=== PATIENT | female | born 1955 | race American Indian/Alaskan Native ===

== ENCOUNTER 2017-07-09 10:11 | Emergency (ER) | payer BC ==
[2017-07-09 10:20] VITALS: BMI 29.7
--- NOTE | 2017-07-09 10:39 | ED PDOC ---
Arrival/HPI - General Time Seen by Provider: 07/09/17 10:30 Historian: Patient - History of Present Illness Narrative History of Present Illness (Text): 07/09/17 10:41 61 yo female w/PMHx of HTN, CAD s/p PTCA, insomnia come in for evaluation of gradual onset of N/V/D associated with low abdominal pain for past 3 days. Pt reports, (+) intermittent non-bilious, non-bloody vomiting twice daily, few episodes of watery diarrhea yesterday. Pt admits, (+) cold sx for past week associated with productive cough with yellow sputum, former smoker. Pt admits, " was using home remedied for vomiting and stomach pain, worsen since last night ". Otherwise, pt denies high fever, chills, lethargy, headache, dizziness, visual changes, focal deficits, neck pain, CP, SOB, dyspnea, diaphoresis, palpitation, wheezing, hematemesis, melena, hematoschezia, back pain, UTI sx. AT [place] time of evaluation, appears weak, not in resp. distress. Past Medical History - Provider Review Nursing Documentation Reviewed: Yes - Travel History Have you recently traveled outside [place] w/in the past 3 mons?: No - Tetanus Immunization Tetanus Immunization: Unknown Family/Social History - Physician Review Nursing Documentation Reviewed: Yes Family/Social History: No Known Family HX Allergies/Home Meds Allergies/Adverse Reactions: Allergies No Known Allergies Allergy (Verified 07/09/17 10:16) Home Medications: Home Meds Medication Instructions Recorded Confirmed Alprazolam [Xanax] 0.5 mg PO DAILY PRN 07/09/17 07/09/17 buPROPion SR [Wellbutrin SR 150 MG] 150 mg PO DAILY 07/09/17 07/09/17 Review of Systems - Review of Systems Constitutional: Fatigue Eyes: Normal ENT: Normal Respiratory: Cough, Sputum. absent: SOB, Wheezing Cardiovascular: Normal Gastrointestinal: Abdominal Pain, Diarrhea, Nausea, Vomiting. absent: Appetite Changes, Hematochezia, Hematemesis Genitourinary Female: Normal Musculoskeletal: Normal Skin: Normal Neurological: Normal Endocrine: Normal Hemo/Lymphatic: Normal Psychiatric: Normal Physical Exam Vital Signs Reviewed: Yes Vital Signs Temp Pulse Resp BP Pulse Ox 07/09/17 17:31 77 16 149/85 100 07/09/17 14:52 98.9 F 82 18 160/81 H 100 07/09/17 12:45 91 H 18 155/88 H 100 07/09/17 10:27 99.1 F 73 18 158/88 H 99 Temperature: Afebrile Blood Pressure: Hypertensive Pulse: Regular Respiratory Rate: Normal Appearance: Positive for: Well-Appearing, Non-Toxic, Comfortable Pain Distress: Moderate Mental Status: Positive for: Alert and Oriented X 3 - Systems Exam Head: Present: Normocephalic Conjunctiva: Present: Normal Mouth: Present: Moist Mucous Membranes. No: Drooling Pharnyx: No: ERYTHEMA, TONSILS ENLARGED Neck: Present: Trachea Midline. No: JVD, Lymphadenopathy, Bruit Respiratory/Chest: Present: Good Air Exchange, Wheezes (scattered bibasilar, expiratory), Rhonchi (bibasilar). No: Respiratory Distress, Accessory Muscle Use Cardiovascular: Present: Regular Rate and Rhythm, Normal S1, S2. No: Murmurs Abdomen: Present: Tenderness (mild LLQ, suprapubic), Normal Bowel Sounds. No: Distention, Peritoneal Signs, Rebound, Guarding Back: No: CVA Tenderness Upper Extremity: Present: Normal ROM. No: Deformity Lower Extremity: Present: Normal ROM. No: Edema, CALF TENDERNESS, Swelling, Deformity Neurological: Present: GCS=15, Speech Normal, Normal Sensory Function, Norm Deep Tendon Reflexes Skin: Present: Warm, Dry, Normal Color. No: Rashes Psychiatric: Present: Alert, Oriented x 3 Medical Decision Making ED Course and Treatment: 07/09/17 Pt was OBS in Ed for 4 hours. At 14:52, pt reports mild improvement in abdominal pain after ED treatment. Pt was asking for pain medication and received Toradol, Morphine.Now, pt admits, was taking Suboxone for past 10 yrs and decided to stop it , last dose was less than year ago. Pt reports, was referred to psych and taking Alprazolam 0.5 mg, Lyrica 150 mg and Lorazepan 1mg for " difficulty sleeping". Pt admits, " has high tolerance to pain medication" and request stronger pain medication or Suboxone. [place] review and c/w patient's story, also received percocet 5/325#10 by Jeet Manuel. Case discussed with ED attending, blood work review and appears without acute abnormalities. CT abd/plevis review- no acute findings. Symptomatic treatment with outpt f/u recommend at present time by ED attending. At 16:40, pt resting comfortably, not in nay apparent distress. Pt received Dilaudid in ED for pain and reports moderate improvement in abdominal pain. Pt is afebrile, hemodynamicaly stable. NOn-toxic. Pt was given PO intake and tolerate well. PulsEOx 100% RA ENT: no acute findings neck: Supple, (-) carotid bruits, (-) JVD Lungs: CTA B/L, BS equal B/L CVS: (+)S1S2, reg. Abd: benign, (-) guarding, (-) rebound, (-) localized tenderness. back: (-) CVA tenderness. Neurologicaly intact. Case was review again with ED attending and discharge with outpt f/u recommend. Pt advised on course of ds and ref. to F/u with PMD, psych in 1-2 days for re- eavl. return to ED if any worsening or new changes. - Lab Interpretations Lab Results: 07/09/17 10:30 07/09/17 11:45 Lab Results 07/09/17 12:00: Urine Color Yellow, Urine Appearance Clear, Urine pH 6.5, Ur Specific [place] 1.020, Urine Protein Trace H, Urine Glucose (UA) Negative, Urine Ketones 40 H, Urine Blood Negative, Urine Nitrate Negative, Urine Bilirubin Negative, Urine Urobilinogen 0.2, Ur Leukocyte Esterase Trace H, Urine RBC Negative, Urine WBC 0 - 2, Ur Epithelial Cells 6 - 8, Urine Bacteria Mod 07/09/17 11:45: Sodium 144, Chloride 109 H, Potassium 3.7, Carbon Dioxide 25, Anion Gap 13, BUN 13, Creatinine 0.6 L, Est GFR ( Amer) > 60, Est GFR ( Non-Af Amer) > 60, Random Glucose 120 H, Calcium 9.4, Total Bilirubin 0.7, AST 24, ALT 27, Alkaline Phosphatase 71, Troponin I < 0.01, NT-Pro-B Natriuret Pep 22.7, Total Protein 8.2, Albumin 4.2, Globulin 4.0, Albumin/Globulin Ratio 1.1, Amylase 48, Lipase 33 07/09/17 10:30: pO2 154 H, VBG pH 7.45 H, VBG pCO2 36.0 L, VBG HCO3 25.0, VBG Total CO2 26.1, VBG O2 Sat (Calc) 98.4 H, VBG Base Excess 1.3, VBG Potassium 4.0 , Sodium 141.0, Chloride 107.0, Glucose 140 H, Lactate 1.2, FiO2 21.0, Venous Blood Potassium 4.0 07/09/17 10:30: PT 12.8 H, INR 1.16 H, APTT 31.7 07/09/17 10:30: WBC 7.1, RBC 5.25, Hgb 14.2, Hct 40.8, MCV 77.7 L, MCH 27.0, MCHC 34.8, RDW 14.5, Plt Count 299, MPV 10.1, Gran % 80.4 H, Lymph % (Auto) 15.9 L, [place] % (Auto) 3.3, Eos % (Auto) 0.3 L, Baso % (Auto) 0.1, Gran # 5.67, Lymph # 1.1 L, [place] # 0.2, Eos # 0.0, Baso # 0.01 Interpretation: No clinic. lab abnormalty - RAD Interpretation Narrative RAD Interpretations (Text): 07/09/17 13:49 Accession No. : [id number] Patient Name / ID : CANDI MARRERO / [id number] Exam Date : 07/09/2017 12:55:40 ( Approved ) Study Comment : Sex / Age : F / 61Y Creator : Nitin Panda MD Dictator : Nitin Panda MD [employer] : Sustainability Officer : Nitin Panda MD Approver2 : Report Date : 07/09/2017 13:46:37 My Comment : PROCEDURE: CT Abdomen and Pelvis with contrast HISTORY: LLQ pain COMPARISON: None. TECHNIQUE: Contrast dose: 100 cc Omnipaque 350 Radiation dose: Total exam DLP = 731.68 mGy-cm. This CT exam was performed using one or more of the following dose reduction techniques: Automated exposure control, adjustment of the mA and/or kV according to patient size, and/or use of iterative reconstruction technique. FINDINGS: LOWER THORAX: Unremarkable. LIVER: Echo steatosis GALLBLADDER AND BILE DUCTS: Status post cholecystectomy. No abnormality is seen in the gallbladder fossa. PANCREAS: Unremarkable. No gross lesion or ductal dilatation. SPLEEN: Unremarkable. ADRENALS: Unremarkable. No mass. KIDNEYS AND URETERS: Unremarkable. No hydronephrosis. No solid mass. VASCULATURE: Unremarkable. No aortic aneurysm. BOWEL: Diverticulosis without an acute inflammatory component or other associated pathologic process. APPENDIX: Normal appendix. PERITONEUM: Unremarkable. No free fluid. No free air. LYMPH NODES: Unremarkable. No enlarged lymph nodes. BLADDER: Unremarkable. REPRODUCTIVE: Unremarkable. BONES: No acute fracture. OTHER FINDINGS: None. IMPRESSION: No acute findings related to/accounting for the clinical presentation. Additional benign and/or incidental findings described above. Radiology Orders: 07/09/17 10:39 CHEST PORTABLE [RAD] Stat 07/09/17 10:45 ABD & PELVIS IV CONTRAST ONLY [CT] Stat CXR (-) acute findings Cat Scan Tech: ED Physician - EKG Interpretation EKG Interpretation (Text): 07/09/17 10:38 Sinus milton@59/min,, no acute T wave or ST-T changes. No previous study available. Comparison: No previous EKG avail. - Medication Orders Current Medication Orders: Discontinued Medications Albuterol/Ipratropium (Duoneb 3 Mg/0.5 Mg (3 Ml) Ud) 3 ml IH STAT STA Stop: 07/09/17 10:42 Last Admin: 07/09/17 10:57 Dose: 3 ml Famotidine (Pepcid) 20 mg IVP STAT STA Stop: 07/09/17 10:41 Last Admin: 07/09/17 10:56 Dose: 20 mg IVP Administration Document 07/09/17 10:56 NM (Rec: 07/09/17 10:56 NM [id number]) Charges for Administration # of IVP Administrations 1 Hydromorphone HCl (Dilaudid) 2 mg IVP STAT STA Stop: 07/09/17 16:01 Last Admin: 07/09/17 16:25 Dose: 2 mg MAR Pain Assessment Document 07/09/17 16:25 HI (Rec: 07/09/17 16:25 [place] [id number]) Pain Reassessment Is this a pain reassessment? Yes Sleep Is patient sleeping during reassessment? No Presence of Pain Presence of Pain Yes Location Pain Location Body Site Abdomen IVP Administration Document 07/09/17 16:25 HI (Rec: 07/09/17 16:25 HI [id number]) Charges for Administration # of IVP Administrations 1 Sodium Chloride (Sodium Chloride 0.9%) 1,000 mls @ 999 mls/hr IV .Q1H1M STA Stop: 07/09/17 11:40 Last Admin: 07/09/17 10:54 Dose: 999 mls/hr eMAR Start Stop Document 07/09/17 10:54 HI (Rec: 07/09/17 10:56 HI [id number]) Intravenous Solution Start Date 07/09/17 Start Time 10:56 Ketorolac Tromethamine (Toradol) 30 mg IVP STAT STA Stop: 07/09/17 12:59 Last Admin: 07/09/17 13:10 Dose: 30 mg MAR Pain Assessment Document 07/09/17 13:10 HI (Rec: 07/09/17 13:13 [place] [id number]) Pain Reassessment Is this a pain reassessment? Yes Sleep Is patient sleeping during reassessment? No Presence of Pain Presence of Pain Yes IVP Administration Document 07/09/17 13:10 HI (Rec: 07/09/17 13:13 [place] [id number]) Charges for Administration # of IVP Administrations 1 Re-Assess: MAR Pain Assessment Document 07/09/17 14:10 HI (Rec: 07/09/17 15:05 [place] [id number]) Pain Reassessment Is this a pain reassessment? Yes Sleep Is patient sleeping during reassessment? No Presence of Pain Presence of Pain No Metoclopramide HCl (Reglan) 10 mg IV STAT STA Stop: 07/09/17 11:37 Last Admin: 07/09/17 12:09 Dose: 10 mg eMAR Start Stop Document 07/09/17 12:09 HI (Rec: 07/09/17 12:09 HI [id number]) Intravenous Solution Start Date 07/09/17 Start Time 12:09 Morphine Sulfate (Morphine) 4 mg IVP STAT STA Stop: 07/09/17 13:50 Last Admin: 07/09/17 14:09 Dose: 4 mg [facility] Pain Assessment Document 07/09/17 14:09 HI (Rec: 07/09/17 14:09 [id number] Pain Reassessment Is this a pain reassessment? Yes Sleep Is patient sleeping during reassessment? No Presence of Pain Presence of Pain Yes IVP Administration Document 07/09/17 14:09 HI (Rec: 07/09/17 14:09 [id number]) Charges for Administration # of IVP Administrations 1 Re-Assess: [facility] Pain Assessment Document 07/09/17 15:09 HI (Rec: 07/09/17 15:24 HI [id number]) Pain Reassessment Is this a pain reassessment? No Sleep Is patient sleeping during reassessment? No Presence of Pain Presence of Pain No Pain Scale Used Pain Scale Used Numeric Ondansetron HCl (Zofran Inj) 4 mg IVP STAT STA Stop: 07/09/17 10:41 Last Admin: 07/09/17 10:56 Dose: 4 mg IVP Administration Document 07/09/17 10:56 HI (Rec: 07/09/17 10:[id number][address] Charges for Administration # of IVP Administrations 1 Pantoprazole Sodium (Protonix Inj) 40 mg IVP STAT STA Stop: 07/09/17 10:41 Last Admin: 07/09/17 10:56 Dose: 40 mg IVP Administration Document 07/09/17 10:56 HI (Rec: 07/09/17 10:[id number][address] Charges for Administration # of IVP Administrations 1 Disposition/Present on Arrival - Present on Arrival Any Indicators Present on Arrival: No - Disposition Have Diagnosis and Disposition been Completed?: Yes Diagnosis: Abdominal pain, Vomiting, Opioid dependence Disposition: HOME/ ROUTINE Disposition Time: 16:54 Patient Plan: Discharge Condition: STABLE Discharge Instructions (ExitCare): Abdominal Pain (ED), Opioid Dependence (ED) Additional Instructions: ENCOURAGE FLUIDS TAKE MEDICATION PRESCRIBED FOLLOW UP WITH PMD, PSYCHIATRIST IN 1-2 DAYS FOR RE-EVALUATION AND FURTHER TREATMENT. RETURN TO ED IF ANY WORSENING OR NEW CHANGES. Prescriptions: Ondansetron ODT [Zofran ODT] 1 odt PO BID PRN #6 odt PRN Reason: Nausea/Vomiting Referrals: Luis Luevano MD [Primary Care Provider] - Follow up with primary Forms: [employer] (Filipino)
[2017-07-09] MEDS ORDERED: Sodium Chloride 0.9% 1,000 ML IV STA (10:40)
[2017-07-09] MEDS ORDERED: Albuterol-Ipratrop 3 mg / 0.5 (3 ml) UD IH STA (10:41)
[2017-07-09 10:50] LABS: VENOUS BLOOD GAS BASE EXCESS 1.3 mmol/L (0.0-2.0); VENOUS BLOOD PH 7.45 (7.32-7.43)
[2017-07-09 11:10] LABS: BASO # 0.01 K/mm3 (0.0-2.0); BASO % 0.1 % (0.0-3.0); EOS % 0.3 % (1.5-5.0); GRAN # 5.67 (1.4-6.5); GRAN % 80.4 % (50.0-68.0); HEMATOCRIT 40.8 % (36.0-48.0); LYMPH # 1.1 (1.2-3.4); LYMPH % 15.9 % (22.0-35.0); MEAN CELL VOLUME 77.7 fl (80.0-105.0); MEAN CORPUSCULAR HGB CONC 34.8 g/dl (31.0-37.0); MEAN PLATELET VOLUME 10.1 fl (7.0-11.0); MONO # 0.2 (0.1-0.6); MONO % 3.3 % (1.0-6.0); RED CELL DISTRIBUTION WIDTH 14.5 % (11.5-14.5); WHITE BLOOD COUNT 7.1 10^3/ul (4.5-11.0)
--- NOTE | 2017-07-09 11:27 | RAD ---
HISTORY: Sepsis Patient COMPARISON: No prior. FINDINGS: LUNGS: No active pulmonary disease. PLEURA: No significant pleural effusion identified, no pneumothorax apparent. CARDIOVASCULAR: Normal. OSSEOUS STRUCTURES: No significant abnormalities. VISUALIZED UPPER ABDOMEN: Normal. OTHER FINDINGS: None. IMPRESSION: No active disease.
[2017-07-09 11:44] LABS: INR 1.16 (0.93-1.08)
[2017-07-09 11:45] LABS: PARTIAL THROMBOPLASTIN TIME 31.7 Seconds (25.1-36.5)
[2017-07-09 12:04] LABS: ALB/GLOB RATIO 1.1 (1.1-1.8); ALKALINE PHOSPHATASE 71 U/L (38-126); ALT/SGPT 27 U/L (7-56); AMYLASE 48 U/L (35-125); AST/SGOT 24 U/L (14-36); BILIRUBIN,TOTAL 0.7 mg/dL (0.2-1.3); BLOOD UREA NITROGEN 13 mg/dL (7-21); CALCIUM 9.4 mg/dL (8.4-10.5); CARBON DIOXIDE 25 mmol/L (21-33); CHLORIDE 109 mmol/L (98-107); GFR AFRICAN-AMERICAN > 60; GLUCOSE,RANDOM 120 mg/dL (70-110); LIPASE 33 U/L (23-300); POTASSIUM 3.7 mmol/L (3.6-5.0); SODIUM 144 mmol/L (132-148); TOTAL PROTEIN 8.2 g/dL (5.8-8.3)
[2017-07-09 12:15] LABS: TROPONIN I < 0.01 ng/mL
[2017-07-09 12:17] LABS: PH,URINE 6.5 (4.7-8.0); URINE APPEARANCE CLEAR (CLEAR); URINE BILIRUBIN NEGATIVE (NEGATIVE); URINE BLOOD NEGATIVE (NEGATIVE); URINE COLOR YELLOW (YELLOW); URINE GLUCOSE (UA) NEGATIVE (NEGATIVE); URINE KETONE 40 mg/dL (NEGATIVE); URINE LEUKOCYTE ESTERASE TRACE Leu/uL (NEGATIVE); URINE PROTEIN TRACE mg/dL (<30 mg/dL); URINE UROBILINOGEN 0.2 E.U./dL (<1 E.U./dL)
[2017-07-09 12:22] LABS: URINE BACTERIA MOD (NEG); URINE RBC NEGATIVE /hpf (0-2); URINE WBC 0 - 2 /hpf (0-6)
[2017-07-09] MEDS ORDERED: Iohexol 300 100 ML IJ ONE (12:37)
[2017-07-09] MEDS ORDERED: Iohexol 350 MG/100 ML VIAL ONE (12:39)
[2017-07-09 12:46] VITALS: O2SAT 100
--- NOTE | 2017-07-09 13:42 | CARD ---
APPROVED REPORT EKG Measurement Heart [id number] <Conclusion> Sinus bradycardia (59 BPM) Otherwise normal ECG
--- NOTE | 2017-07-09 13:48 | CT ---
PROCEDURE: CT Abdomen and Pelvis with contrast HISTORY: LLQ pain COMPARISON: None. TECHNIQUE: Contrast dose: 100 cc Omnipaque 350 Radiation dose: Total exam DLP = 731.68 mGy-cm. This CT exam was performed using one or more of the following dose reduction techniques: Automated exposure control, adjustment of the mA and/or kV according to patient size, and/or use of iterative reconstruction technique. FINDINGS: LOWER THORAX: Unremarkable. LIVER: Echo steatosis GALLBLADDER AND BILE DUCTS: Status post cholecystectomy. No abnormality is seen in the gallbladder fossa. PANCREAS: Unremarkable. No gross lesion or ductal dilatation. SPLEEN: Unremarkable. ADRENALS: Unremarkable. No mass. KIDNEYS AND URETERS: Unremarkable. No hydronephrosis. No solid mass. VASCULATURE: Unremarkable. No aortic aneurysm. BOWEL: Diverticulosis without an acute inflammatory component or other associated pathologic process. APPENDIX: Normal appendix. PERITONEUM: Unremarkable. No free fluid. No free air. LYMPH NODES: Unremarkable. No enlarged lymph nodes. BLADDER: Unremarkable. REPRODUCTIVE: Unremarkable. BONES: No acute fracture. OTHER FINDINGS: None. IMPRESSION: No acute findings related to/accounting for the clinical presentation. Additional benign and/or incidental findings described above.
[2017-07-09] MEDS ORDERED: Morphine 4 mg/ml ISec IVP STA (13:49)
[2017-07-09 15:05] VITALS: TEMP 98.9
[2017-07-09] MEDS ORDERED: HYDROmorphone 2 mg/ml ISec IVP STA (16:00)
[2017-07-09 17:34] VITALS: BP 149/85; PULSE 77; RESP 16
== END 2017-07-09 17:31 | disposition home or self-care (01) ==
LOC: ED 10:11
DX: F11.20 Opioid dependence, uncomplicated (principal); R11.10 Vomiting, unspecified; I25.10 Atherosclerotic heart disease of native coronary artery without angina pectoris; I10 Essential (primary) hypertension; Z98.61 Coronary angioplasty status
CPT/HCPCS: 71010; 74177; 80053; 81001; 82150; 82803; 83690; 83880; 84484; 85025; 85610; 85730; 87040; 87086; 93005; 96374; 96375; 99284; C9113; J1170; J1885; J2270; J2405; J2765; J7040; Q9967